=== PATIENT | female | born 1970 | race Two or more races ===

== ENCOUNTER 2024-04-02 17:02 | Emergency (ER) | payer OTHER ==
[~2024-04-02] VITALS: Ht 160 cm; Wt 80.3 kg
[2024-04-02] MEDS ORDERED: 0.9 % SODIUM CHLORIDE 500 ML IV ONE (19:00)
[2024-04-02] MEDS ORDERED: ONDANSETRON HCL 2 MG/ML VIAL IV ONE (19:00)
[2024-04-02] MEDS ORDERED: FAMOTIDINE/PF 20 MG/2 ML VIAL IV ONE (19:00)
[2024-04-02] MEDS ORDERED: FAMOTIDINE/PF 20 MG/2 ML VIAL ONE (19:06)
[2024-04-02] MEDS ORDERED: ONDANSETRON HCL 2 MG/ML VIAL ONE (19:06)
[2024-04-02 19:36] LABS: URINE APPEARANCE Clear; URINE BILIRRUBIN Negative (NEGATIVE); URINE BLOOD Moderate; URINE COLOR Yellow; URINE GLUCOSE Negative (NEGATIVE); URINE LEUKOCYTE Negative; URINE NITRATE Negative; URINE PROTEIN Negative (NEGATIVE)
[2024-04-02 19:38] LABS: HEMATOCRIT 39.7 % (36.0-45.00); HEMOGLOBIN 13.2 g/dL (12.0-15.00); MEAN CELL VOLUME 86.5 fL (80.00-100.00); MEAN CORPUSCULAR HEMOGLOBIN 28.8 pg (27.00-32.0); MEAN CORPUSCULAR HGB CONC 33.3 g/dl (32.0-36.0); PLATELET COUNT 294 K/uL (150-450); RED BLOOD COUNT 4.59 M/uL (4.00-6.00); RED CELL DISTRIBUTION WIDTH 15.2 % (11.5-14.5)
[2024-04-02 19:40] LABS: URINE EPITHELIAL CELLS 22.7 uL (0.0-38.8); URINE RBC 189.3 uL (0.0-20.8); URINE WBC 8.1 uL (0.0-23.2)
[2024-04-02 19:49] LABS: URINE CAST 0.15 uL (0.0-1.40); URINE KETONE 40 (NEGATIVE)
[2024-04-02 19:52] LABS: INR 1.02; PARTIAL THROMBOPLASTIN TIME 29.5 SECONDS (22.0-34.0); PROTHROMBIN TIME 11.1 SECONDS (9.0-11.5)
[2024-04-02 20:04] LABS: ALBUMIN 4.4 gm/dL (3.4-5.0); BILIRUBIN TOTAL 0.38 mg/dL (0.3-1.2); CALCIUM 9.4 mg/dL (8.5-10.1); CREATININE SERUM 0.76 mg/dL (0.55-1.02); GFR 79.31; GLOBULINA 3.8 G/DL (2.4-3.5); POTASSIUM 3.41 mEq/L (3.5-5.1); TOTAL PROTEIN 8.2 gm/dL (6.4-8.2)
[2024-04-02] MEDS ORDERED: KETOROLAC TROMETHAMINE 30 MG VIAL IV ONE (21:15)
[2024-04-02] MEDS ORDERED: KETOROLAC TROMETHAMINE 30 MG VIAL ONE (21:48)
[2024-04-02] MEDS ORDERED: PROTONIX20 MG PO (22:33)
[2024-04-02] MEDS ORDERED: PEPCID AC20 MG PO (22:33)
== END 2024-04-02 22:45 | disposition home or self-care (01) ==
LOC: ER 17:03
PROVIDERS: Nurse Practitioner Family
DX: R10.31 Right lower quadrant pain (principal)